=== PATIENT | female | born 1960 | race Two or more races ===

== ENCOUNTER 2017-06-03 15:19 | Emergency (ER) | payer MEDICARE ==
[~2017-06-03] VITALS: Ht 160 cm; Wt 81.6 kg
[2017-06-03 15:25] VITALS: BP 140/67
[2017-06-03] MEDS ORDERED: cefTRIAXone SOD 1,000 MG VL IM ONE (16:15)
[2017-06-03] MEDS ORDERED: PHENAZOPYRIDINE HCL 100 MG TAB PO ONE (16:15)
== END 2017-06-03 16:31 | disposition home or self-care (01) ==
LOC: ER 15:21
DX: N39.0 Urinary tract infection, site not specified (principal); E11.9 Type 2 diabetes mellitus without complications; E78.5 Hyperlipidemia, unspecified; I10 Essential (primary) hypertension; Z90.49 Acquired absence of other specified parts of digestive tract
CPT/HCPCS: 81002; 96372; 99283; J0696

== ENCOUNTER 2019-07-28 17:16 | Emergency (ER) | payer OTHER ==
[~2019-07-28] VITALS: Ht 160 cm; Wt 81.6 kg
[2019-07-28] MEDS ORDERED: ACETAMINOPHEN/CODEINE#3 (300/30mg) TAB PO ONE (19:00)
[2019-07-28] MEDS ORDERED: cefTRIAXone SOD 1,000 MG VL IM ONE (19:00)
[2019-07-28] MEDS ORDERED: DexAMETHasone SOD PHOS 10MG/1ML VIAL INJ IM ONE (19:00)
[2019-07-28 19:48] VITALS: BP 134/85
== END 2019-07-28 19:48 | disposition home or self-care (01) ==
LOC: ER 17:16
DX: J03.90 Acute tonsillitis, unspecified (principal); H66.93 Otitis media, unspecified, bilateral; Z90.49 Acquired absence of other specified parts of digestive tract; Z90.89 Acquired absence of other organs
CPT/HCPCS: 96372; 99283; J0696; J1100

== ENCOUNTER 2021-09-18 17:27 | Emergency (ER) | payer OTHER ==
[~2021-09-18] VITALS: Ht 160 cm; Wt 78.0 kg
[2021-09-18 20:29] LABS: Calcium 8.8 mg/dL (8.5-10.1); Potassium 3.7 mmol/L (3.5-5.1)
[2021-09-18 20:30] LABS: Basophils # (auto) 0 10 ^3/uL (0-0.2); Basophils % (auto) 0.2 % (0.0-2.0); Eosinophils # (auto) 0.2 10 ^3/uL (0-0.8); Eosinophils % (auto) 1.9 % (0.0-7.0); Lymphocytes # (auto) 4.2 10 ^3/uL (0.4-5.4); Lymphocytes % (auto) 49.4 % (10.0-50.0); Mean Corpuscular Hemoglobin 27.8 pg (28.0-32.0); Mean Corpuscular Hgb Conc. 34.2 g/dL (32.0-36.0); Mean Corpuscular Volume 81.2 fL (80.0-100.0); Monocytes # (auto) 0.5 10 ^3/uL (0-1.3); Monocytes % (auto) 6.2 % (0.0-12.0); Neutrophils # (auto) 3.6 10 ^3/uL (1.6-8.6); Neutrophils % (auto) 42.3 % (37.0-80.0); Nucleated Red Blood Cells % 0.1 %; Red Blood Cells 5.05 10^6/uL (4.0-5.20); Red Cell Distribution Width 13.8 % (11.8-14.3); White Blood Cell 8.6 10^3/uL (4.4-10.8)
[2021-09-18 20:39] LABS: Albumin 3.6 g/dL (3.4-5.0); BUN/Creatinine Ratio 28.4; Bilirubin, Total 0.3 mg/dL (0.2-1.0); Magnesium 2.8 mg/dL (1.6-2.6)
[2021-09-18 20:46] LABS: INR 0.99 (0.9-1.15)
[2021-09-18 23:52] VITALS: BP 149/86
== END 2021-09-19 00:13 | disposition home or self-care (01) ==
LOC: ER 17:27
DX: R07.89 Other chest pain (principal); R51.9 Headache, unspecified; I10 Essential (primary) hypertension; E11.9 Type 2 diabetes mellitus without complications; E78.5 Hyperlipidemia, unspecified
CPT/HCPCS: 36415; 71045; 80053; 83735; 83880; 84484; 85025; 85610; 93005